=== PATIENT | male | born 2005 | race Caucasian/White ===

== ENCOUNTER 2025-01-03 01:49 | Emergency (ER) | payer OTHER ==
[~2025-01-03] VITALS: Ht 175.3 cm; Wt 71.3 kg
[2025-01-03] MEDS: KETOROLAC 30 MG/ML 1ML VIAL IV ONE (06:57)
[2025-01-03 07:00] LABS: BASO % 0.3 % (0.0-1.0); EOS # 0.3 10^3/uL (0.0-0.5); EOS % 3.5 % (0.0-3.0); HEMATOCRIT 39.4 % (42.0-52.0); HEMOGLOBIN 13.5 g/dl (13.5-17.5); LYMPH # 2.6 10^3/uL (1.5-5.0); LYMPH % 34.5 % (24.0-44.0); MEAN CORPUSCULAR HEMOGLOBIN 29.2 pg (27.0-33.0); MEAN CORPUSCULAR HGB CONC 34.3 g/dl (32.0-36.5); MEAN CORPUSCULAR VOLUME 85.3 fl (80.0-96.0); MONO # 0.5 10^3/uL (0.0-0.8); MONO % 6.9 % (2.0-8.0); NEUTROPHILS # 4.2 10^3/uL (1.5-8.5); NEUTROPHILS % 54.7 % (36.0-66.0); PLATELET COUNT, AUTOMATED 221 10^3/uL (150-450); RED BLOOD COUNT 4.62 10^6/uL (4.30-6.10); WHITE BLOOD COUNT 7.7 10^3/uL (4.0-10.0)
[2025-01-03] MEDS ORDERED: ISOVUE-370 76% 100ML VIAL As Ordered ONE (07:09)
[2025-01-03 07:19] LABS: ALBUMIN 4.1 G/DL (3.2-5.2); BILIRUBIN,DIRECT 0.1 MG/DL (<0.4); BILIRUBIN,TOTAL 0.4 MG/DL (0.3-1.2); TOTAL PROTEIN 6.8 G/DL (5.7-8.2)
[2025-01-03 07:30] LABS: KETONE, URINE AUTO RFX NEGATIVE (NEGATIVE); LEUKOCYTE ESTERASE UR AUTO RFX NEGATIVE (NEGATIVE); MUCUS, URINE RFX SMALL (NEGATIVE); NITRITE, URINE AUTO RFX NEGATIVE (NEGATIVE); RBC, URINE AUTO RFX 1 /HPF (0-3); SQUAM EPITHELIAL CELL UR AURFX 0 /HPF (0-6); WBC, URINE AUTO RFX 4 /HPF (0-3)
[2025-01-03] MEDS ORDERED: PANT40TA29 PO (08:08)
[2025-01-03] MEDS ORDERED: SUCR1ORA PO (08:08)
[2025-01-03 08:45] VITALS: BP 110/56
[2025-01-03] MEDS: MAALOX 30 ML SUSP *UDC PO ONE (08:45)
[2025-01-03] MEDS: SUCRALFATE SUSP 1GM/10ML UD PO ONE (08:45)
[2025-01-03 08:46] VITALS: TEMP 97.5; O2SAT 98
== END 2025-01-03 08:50 | disposition home or self-care (01) ==
LOC: M ED 01:49
DX: K40.90 Unilateral inguinal hernia, without obstruction or gangrene, not specified as recurrent (principal); A08.39 Other viral enteritis; Z79.899 Other long term (current) drug therapy
CPT/HCPCS: 74177; 80047; 80076; 81001; 83690; 85025; 96374; 99284; J1885; Q9967